=== PATIENT | female | born 2005 | race Hispanic/Latino ===

== ENCOUNTER → 2025-08-26 | Emergency (ER) | payer SELFPAY ==
[~2025-08-26] VITALS: Ht 160 cm; Wt 75.3 kg
[~2025-08-26] MED LIST: LACTATED RINGERS 1000ML 2,259 ML IV ONE
[2025-08-26 15:52] VITALS: BP 128/87; PULSE 133; RESP 18; TEMP 101
--- NOTE | 2025-08-26 16:05 | ERN ---
ED Note History of Present Illness Stated Complaint: NAUSEA/VOMITING Chief Complaint: Nausea,Vomiting,Diarrhea Time Seen by MD: 15:52 Time Seen by Midlevel: 15:55 Dictation: 20-year-old female with no past medical history coming in with complaints of v omiting x5 started this morning. Patient denies having any abdominal pain, dysuria or hematuria. Patient admits to has been eating junk food and having alcohol last night. Allergies: Coded Allergies: No Known Drug Allergies (Unverified Allergy, Unknown, 08/26/25) Past Medical History Past Medical History: Anxiety Surgical History: None LMP: Aug 10, 2025 : 0 Review of System Dictation Constitutional: Negative for fever,chills, and weight loss Eyes: Negative for injury, pain,redness, and discharge ENT: Negative for injury,pain or swelling Cardiovascular: Negative for chest pain, palpitations, and edema Respiratory: Negative for shortness of breath, cough, and wheezing, Abdomen/GI: Negative for abdominal pain, negative for diarrhea constipation, positive for nausea and vomiting Back: Negative for injury and pain : Negative for injury, bleeding and discharge MS/Extremity: Negative for injury and deformity Skin: Negative for rash, and discoloration Neuro: Negative for headache, weakness, numbness, tingling, and seizure Psych: Negative for suicide ideation, homicidal ideation, and hallucinations Review of Systems: was completed Initial Vital Sign VS Vital Signs Date Time Temp Pulse Resp B/P (MAP) Pulse Ox O2 Delivery O2 Flow Rate FiO2 08/26/25 15:52 100.9 133 18 128/87 97 Room Air 0 Physical Exam Dictation General: awake, alert, NAD Head/Face: Normocephalic, atraumatic Eyes: PERRL, EOMI, vision at baseline ENT: oral cavity clear, TMs clear, no signs of infection Neck: Trachea midline, supple, no nuchal rigidity Cardiovascular: RRR, normal S1/S2, No MRGs, no JVD Respiratory: CTAB, no respiratory distress, No rales or wheezes Abdomen: Soft, non-tender, non-distended, normal bowel sounds, no guarding or rebound. Skin: Warm, dry, normal turgor, no rash MS/Extremity: Pulses equal, no cyanosis, neurovascular intact, FROM Neuro: COAx4, GCS 15, strength 5/5, CN 2-12 intact, normal cerebellar exam, normal gait, Psych: Normal behavior, mood, and affect normal Results (Laboratory/Radiology) Laboratory/Radiology Laboratory Tests Test 08/26/25 16:30 08/26/25 17:28 08/26/25 20:10 White Blood Count 9.4 K/uL (4.8-10.8) Red Blood Count 4.54 MIL/uL (4.00-5.50) Hemoglobin 13.8 g/dL (12.0-16.0) Hematocrit 40.5 % (36-48) Mean Corpuscular Volume 89.2 fL (80-100) Mean Corpuscular Hemoglobin 30.4 pg (27.0-33.0) Mean Corpuscular Hemoglobin Concent 34.1 g/dL (32.0-36.0) Red Cell Distribution Width 11.9 % (11.0-15.5) Platelet Count 215 K/uL (130-400) Mean Platelet Volume 10.3 fL (7.5-10.5) Immature Granulocyte % (Auto) 0.4 % (0-1) Neutrophils (%) (Auto) 88.0 % (40.0-77.0) H Lymphocytes (%) (Auto) 3.8 % (21.0-51.0) L Monocytes (%) (Auto) 7.0 % (3.0-13.0) Eosinophils (%) (Auto) 0.4 % (0.0-8.0) Basophils (%) (Auto) 0.4 % (0.0-5.0) Neutrophils # (Auto) 8.3 K/uL (1.8-7.7) H Lymphocytes # (Auto) 0.4 K/uL (1.0-4.8) L Monocytes # (Auto) 0.7 K/uL (0.1-1.0) Eosinophils # (Auto) 0.04 K/uL (0.00-0.70) Basophils # (Auto) 0.04 K/uL (0.00-0.20) Absolute Immature Granulocyte (auto 0.04 K/uL (0-1) Nucleated Red Blood Cells 0.0 % (0.0-0.19) White Cell Morphology Comment See comments Sodium Level 139 mmol/L (136-145) Potassium Level 3.7 mmol/L (3.5-5.1) Chloride Level 102 mmol/L (101-111) Carbon Dioxide Level 22 mmol/L (21-32) Blood Urea Nitrogen 10 mg/dL (7-18) Creatinine 0.6 mg/dL (0.5-1.0) Glomerular Filtration Rate Calc 131 mL/min (>90) Random Glucose 109 mg/dL (70-105) H Lactic Acid Level 3.2 mmol/L (0.8-2.5) H 3.2 mmol/L (0.8-2.5) H Total Calcium 8.9 mg/dL (8.5-10.1) Total Bilirubin 0.2 mg/dL (0.2-1.0) Direct Bilirubin 0.1 mg/dL (0.0-0.3) Aspartate Amino Transf (AST/SGOT) 61 U/L (10-37) H Alanine Aminotransferase (ALT/SGPT) 69 U/L (12-78) Alkaline Phosphatase 63 U/L (50-136) Total Creatine Kinase 88 U/L (21-232) Troponin I High Sensitivity < 4 ng/L (4-50) L Total Protein 8.8 g/dL (6.0-8.3) H Albumin 4.4 g/dL (3.5-5.0) Lipase 20 U/L (16-77) Human Chorionic Gonadotropin, Quant 0 mIU/mL (0-5) Urine Color LIGHT-YELLOW (YELLOW) Urine Appearance CLEAR (CLEAR) Urine pH 8.5 (5.0-8.0) H Urine Specific [place] 1.023 (1.001-1.031) Urine Protein 20 mg/dL (NEGATIVE) H Urine Glucose (UA) NEGATIVE mg/dL (NEGATIVE) Urine Ketones NEGATIVE mg/dL (NEGATIVE) Urine Occult Blood NEGATIVE (NEGATIVE) Urine Nitrate NEGATIVE (NEGATIVE) Urine Bilirubin NEGATIVE mg/dL (NEGATIVE) Urine Urobilinogen 0.2 mg/dL (0.2-1.0) Urine Leukocyte Esterase 75 Ankit/uL (NEGATIVE) H Urine RBC 11-25 /HPF (0-1) H Urine WBC 2-5 /HPF (0-1) H Urine Squamous Epithelial Cells FEW /HPF (0-2) Urine Bacteria FEW /HPF (None Seen) Urine Opiates Screen NEGATIVE (NEGATIVE) Urine Barbiturates Screen NEGATIVE (NEGATIVE) Urine Phencyclidine Screen NEGATIVE (NEGATIVE) Urine Amphetamines Screen NEGATIVE (NEGATIVE) Urine Benzodiazepines Screen NEGATIVE (NEGATIVE) Urine Cocaine Screen NEGATIVE (NEGATIVE) Urine Marijuana (THC) Screen NEGATIVE (NEGATIVE) Labs Reviewed?: Yes ED Course ED Course Orders Procedure Category Date Status Time Cbc With Differential LAB 08/26/25 Complete 15:57 Blood Cult MAYUR 08/26/25 In Process 15:57 Urinalysis Profile LAB 08/26/25 Complete 15:57 Culture Urine MAYUR 08/26/25 In Process 15:57 Creatine Kinase, Total LAB 08/26/25 Complete 15:57 Troponin I High LAB 08/26/25 Complete Sensitivity 15:57 Lactic Acid LAB 08/26/25 Complete 15:57 Basic Metabolic Panel LAB 08/26/25 Complete 15:57 Lactated Ringers PHA 08/26/25 Complete 1000ml (Lactated 16:30 Acetaminophen 325 Tab PHA 08/26/25 Complete (Tylenol 325mg Tab 16:30 Hepatic Function Panel LAB 08/26/25 Complete 16:30 Lipase LAB 08/26/25 Complete 16:30 Drug Screen Urine LAB 08/26/25 Complete 15:57 Hcg,Quantitative LAB 08/26/25 Complete 18:58 Lactic Acid (Removed) LAB 08/26/25 Complete 19:57 Ondansetron 4mg Inj PHA 08/26/25 Complete (Zofran 4mg Inj) 20:24 Current Medications Medications (Trade) Dose Ordered Sig/Arin Route PRN Reason Start Time Stop Time Status Last Admin Dose Admin Acetaminophen (TYLenol 325MG TAB) 650 mg ONCE ONCE PO 08/26/25 16:30 08/26/25 16:31 DC Lactated Ringer's 2,259 ml @ 753 mls/hr ONCE ONCE IV 08/26/25 16:30 08/26/25 19:29 DC Ondansetron HCl (zoFRAN 4MG INJ) 4 mg ONCE STAT IVP 08/26/25 20:24 08/26/25 20:27 DC Vital Signs Date Time Temp Pulse Resp B/P (MAP) Pulse Ox O2 Delivery O2 Flow Rate FiO2 08/26/25 15:52 100.9 133 18 128/87 97 Room Air 0 Medical Decision Making MDM 20-year-old female with no past medical history coming in with complaints of vomiting x5 started this morning. Patient denies having any abdominal pain, dysuria or hematuria. Patient admits to has been eating junk food and having alcohol last night. Plan: Septic workup, fluids, assess and give fluids as needed. Differentials: Says his, alcohol intoxication, gastroenteritis, pancreatitis 2024 Second lactic reported, still 3.2. Pt in lobby pending to received fluids. Triage nursing aware that patient has pending fluids and then we will repeat lactic. 2113 called out patient multiple times myself and triage nurse. Patient has not found in the ER lobby. More than likely eloped. DX & DISP Disposition: Discharge Departure Impression: Primary Impression: Eloped from emergency department Condition: Stable Referrals: SELF,REFERRAL (PCP) Time of Disposition: 21:15 I have reviewed the case, and I agree with, Diagnosis and Plan LUISA MAYNARD Aug 26, 2025 16:05
[2025-08-26 16:43] LABS: IMMATURE GRANULOCYTE ABSOLUTE 0.04 K/uL (0-1); NUCLEATED RED BLOOD CELLS 0.0 % (0.0-0.19); PLATELET COUNT (AUTO) 215 K/uL (130-400); RED BLOOD CELL COUNT(AUTO) 4.54 MIL/uL (4.00-5.50); RED CELL DISTRIBUTION WIDTH 11.9 % (11.0-15.5); WHITE BLOOD COUNT (AUTO) 9.4 K/uL (4.8-10.8)
[2025-08-26 16:57] LABS: CREATININE 0.6 mg/dL (0.5-1.0); GLOMERULAR FILTR. RATE CALC 131.0 mL/min (>90); GLUCOSE,RANDOM 109.0 mg/dL (70-105); SODIUM SERUM 139.0 mmol/L (136-145); UREA NITROGEN, BLOOD 10.0 mg/dL (7-18)
[2025-08-26 17:06] LABS: ASPARTATE AMINOTRANSFERASE 61.0 U/L (10-37); CREATINE KINASE, TOTAL 88.0 U/L (21-232); TOTAL PROTEIN, SERUM 8.8 g/dL (6.0-8.3)
--- NOTE | 2025-08-26 17:06 | NUR ---
Remberto BELL [employer] MADE AWARE OF LACTIC ACID OF 3.2
[2025-08-26 17:38] LABS: ADD UA MICROSCOPIC YES; APPEARANCE,URINE CLEAR (CLEAR); GLUCOSE, URINE (UA) NEGATIVE (NEGATIVE); LEUKOCYTE ESTERASE ,URINE 75 Leu/uL (NEGATIVE); NITRATE,URINE NEGATIVE (NEGATIVE); OCCULT BLOOD,URINE NEGATIVE (NEGATIVE)
[2025-08-26 17:40] LABS: SQUAMOUS EPITHELIAL CELL,UR FEW /HPF (0-2)
[2025-08-26 17:47] LABS: AMPHET/METH SCREEN,URINE NEGATIVE (NEGATIVE); BARBITURATE SCREEN, URINE NEGATIVE (NEGATIVE); CANNABINOID SCREEN,URINE NEGATIVE (NEGATIVE); COCAINE SCREEN,URINE NEGATIVE (NEGATIVE)
--- NOTE | 2025-08-26 21:08 | NUR ---
CALLED PT OUT IN LOBBY; NO RESPONSE; PT NOT FOUND IN LOBBY.
== END ==
LOC: EDH 15:50
DX: R11.10 Vomiting, unspecified (principal); F41.9 Anxiety disorder, unspecified; Z79.899 Other long term (current) drug therapy
CPT/HCPCS: 36415; 80048; 80076; 80305; 81001; 82550; 83605; 83690; 84484; 84702; 85025; 87040; 87086; 87186; 99283